=== PATIENT | female | born 2000 | race Hispanic/Latino ===

== ENCOUNTER 2020-08-27 07:30 | Inpatient (IN) | payer OTHER ==
[2020-09-13] MEDS ORDERED: Promethazine HCl 25 MG/ML VIAL IM PRN ×2 (05:56→09:16)
[2020-09-13] MEDS ORDERED: Lactated Ringer's 1,000 ML IV SCH (05:56)
[2020-09-13] MEDS ORDERED: Ondansetron PF 4 MG/2 ML Vial IVP PRN ×3 (05:56→09:16)
[2020-09-13] MEDS ORDERED: Famotidine/PF 20 mg/2ml Vial SLOW IVP PRN (05:56)
[2020-09-13] MEDS ORDERED: Bicitra 30 ML UDCUP PO PRN (05:56)
[2020-09-13] MEDS ORDERED: hydrALAZINE 20 MG/ML VIAL SLOW IVP PRN ×2 (05:56→08:40)
[2020-09-13] MEDS ORDERED: Phenylephrine 40 MG/NS 250 ML 250 ML ONE (06:31)
[2020-09-13] MEDS ORDERED: Morphine PF 10 MG/10 ML VIAL ONE (06:31)
[2020-09-13 06:36] LABS: Hemoglobin 10.5 g/dL (12.0-16.0); Mean Corpuscular HGB CONC 32.8 g/dL (32.0-36.0); Mean Platelet Volume 9.2 fL (7.4-10.4); Platelet Count 253 thou/uL (130-400); RBC Distribution Width 18.3 % (11.5-14.5); Red Blood Cell (RBC) Count 4.23 mill/uL (4.00-5.20); White Blood Cell (WBC) Count 13.6 thou/uL (4.8-10.8)
[2020-09-13 06:37] VITALS: BMI 42.0
[2020-09-13] MEDS ORDERED: Oxytocin 10 UNITS/ML VIAL ONE (06:37)
[2020-09-13] MEDS ORDERED: Ondansetron PF 4 MG/2 ML Vial ONE (06:37)
[2020-09-13] MEDS ORDERED: Dexamethasone 4 mg/ml Vial ONE (06:37)
[2020-09-13] MEDS ORDERED: Clindamycin/D5W 900 mg/50 ml Premix Bag ONE (06:58)
[2020-09-13 07:15] LABS: HBSAg Index 0.21 S/CO (0-0.99); Hep B Surf Ag Non-Reactive S/CO (NonReactive); Syphilis Antibody Nonreactive (Nonreactive); Syphilis Antibody Index 0.02 S/CO (<1.00 Non-Reactive)
[2020-09-13] MEDS ORDERED: PHENYLEPHRINE-NS 100 MCG/ML 10 ML SYRINGE ONE (07:39)
[2020-09-13] MEDS ORDERED: PROPOFOL 20 ML ONE (08:07)
[2020-09-13] MEDS ORDERED: Bisacodyl 10 MG SUPP PR PRN (08:40)
[2020-09-13] MEDS ORDERED: Zolpidem Tartrate 5 MG TAB PO PRN (08:40)
[2020-09-13] MEDS ORDERED: diphenhydrAMINE 25 MG CAP PO PRN (08:40)
[2020-09-13] MEDS ORDERED: Misoprostol 200 MCG TAB PR PRN (08:40)
[2020-09-13] MEDS ORDERED: Meperidine HCl/PF 25 MG/ML VIAL IM PRN (08:40)
[2020-09-13] MEDS ORDERED: Acetaminophen 325 MG TAB PO PRN (08:40)
[2020-09-13] MEDS ORDERED: Promethazine HCl 25 MG SUPP PR PRN (09:16)
[2020-09-13] MEDS ORDERED: diphenhydrAMINE 50 MG/ML VIAL IVP PRN (09:16)
[2020-09-13] MEDS ORDERED: Naloxone HCl 0.4 mg/ml Vial IV PRN (09:16)
[2020-09-13] MEDS ORDERED: Naloxone HCl 0.4 mg/ml Vial IVP PRN ×2 (09:16)
[2020-09-13] MEDS ORDERED: Communication Order-Pharmacy FS SCH (09:30)
[2020-09-13] MEDS: Ferrous Sulfate 325 MG TAB PO SCH ×2 (11:07→19:12)
[2020-09-13] MEDS: Docusate Calcium (SURFAK) 240 MG CAP PO SCH ×2 (11:07→20:47)
[2020-09-13] MEDS: Lactated Ringer's 1,000 ML IV SCH ×2 (11:08→17:01)
[2020-09-13] MEDS: Ketorolac Tromethamine 30 MG/ML VIAL IVP PRN ×2 (14:29→20:47)
[2020-09-13] MEDS: Ibuprofen 800 MG TAB PO SCH ×2 (14:31→20:56)
[2020-09-14] MEDS: HYDROcodone/Acetaminophen 5/325 mg Tablet PO PRN ×6 (00:15→21:32)
[2020-09-14] MEDS: Lactated Ringer's 1,000 ML IV SCH ×4 (00:51→23:05)
[2020-09-14] MEDS: Ibuprofen 800 MG TAB PO SCH ×3 (04:50→21:33)
[2020-09-14 07:21] LABS: Hemoglobin 8.8 g/dL (12.0-16.0); Mean Corpuscular HGB CONC 32.7 g/dL (32.0-36.0); Mean Corpuscular Hemoglobin 25.4 pg (25.0-35.0); Mean Corpuscular Volume 77.7 fL (78.0-98.0); Mean Platelet Volume 8.5 fL (7.4-10.4); Platelet Count 203 thou/uL (130-400); RBC Distribution Width 18.4 % (11.5-14.5); Red Blood Cell (RBC) Count 3.44 mill/uL (4.00-5.20); White Blood Cell (WBC) Count 14.4 thou/uL (4.8-10.8)
[2020-09-14] MEDS ORDERED: Adacel (T-DAP) 0.5 ML SYRINGE IM ONE (08:40)
[2020-09-14] MEDS: Simethicone Chewable 80 MG TAB PO PRN (08:58)
[2020-09-14] MEDS: Docusate Calcium (SURFAK) 240 MG CAP PO SCH ×2 (08:58→21:33)
[2020-09-14] MEDS: Ferrous Sulfate 325 MG TAB PO SCH ×2 (08:58→21:33)
--- NOTE | 2020-09-14 09:04 | OP ---
DATE OF PROCEDURE: 09/13/2020 RESIDENT SURGEON: Jena Johnston, PGY-3. ATTENDING SURGEON: Brandee Guillen MD. PROCEDURE PERFORMED: Repeat low-transverse . PREOPERATIVE DIAGNOSES: 1. Term intrauterine . 2. Prior section x1. 3. History of hemorrhage and chorioamnionitis. 4. Group B strep negative. POSTOPERATIVE DIAGNOSES: 1. Term intrauterine , delivered. 2. Prior x1. 3. History of hemorrhage and chorioamnionitis. ANESTHESIA: Spinal. INDICATIONS: The patient is a 19-year-old G2, P1-0-0-1 female at 39.4 weeks' gestation who presents for repeat scheduled . PROCEDURE IN DETAIL: After risks, benefits, and alternatives were explained to the patient, she gave informed consent. Preoperative antibiotics included clindamycin 900 mg due to penicillin allergy. The patient was taken to the operating room where spinal anesthesia was initiated. She was placed in the supine position with a left tilt, and prepped and draped in the usual sterile fashion. A Pfannenstiel was made with a scalpel and carried down to the level of the fascia. Old scar was also excised. Fascia was sharply nicked. The fascial cut was extended bilaterally with Marinelli scissors. The inferior and superior edges of the cut fascial edges were elevated with Jayde clamps and underlying rectus muscles were sharply and bluntly dissected free. The recti were divided digitally and retracted manually. The peritoneum was entered bluntly and retracted manually. Bladder blade was placed. Bladder flap was created with Metzenbaum scissors. A low-transverse score was made with scalpel and the uterus was entered in the midline with a scalpel. Clear fluid was seen. The hysterotomy was extended manually. The was noted to be vertex and easily delivered with fundal pressure at 0758. Nuchal cord x1 easily reduced. Mouth and nares were bulb suctioned. Cord clamped and cut and grossly normal male was handed to waiting nurse. Cord blood was obtained. Placenta was manually extracted and found to be intact with 3-vessel cord and discarded. The uterus was externalized and the endometrium was curetted with a dry lap. The bladder blade was replaced and the uterus was closed with a running locking 1-0 Chromic suture. Seprafilm was applied to the uterus. The abdomen was suction free of clots. Uterus was internalized, and the hysterotomy was again noted to be hemostatic. Peritoneum was closed using 2-0 Vicryl. The rectus was closed using 2-0 Vicryl and #1 chromic. The fascia was closed with a running nonlocking 0 Vicryl. The The subcutaneous tissue was irrigated and bleeders were cauterized and hemostatic. Subcutaneous tissue was closed using 2-0 plain gut. The skin was approximated with 4-0 Monocryl and Dermabond, and the pressure dressing was placed. All counts were correct. The patient tolerated the procedure well and was taken to the recovery room in stable condition. QBL: 830 mL. COMPLICATIONS: None. SPECIMENS: Cord blood sent to lab for blood type. FINDINGS: 1. Grossly normal male with Apgars of 8 and 9. 2. Grossly normal placenta with three-vessel cord discarded. DRAINS: Ortega to gravity, draining clear fluid. Job ID: [id number] MTDD
[2020-09-15] MEDS: HYDROcodone/Acetaminophen 5/325 mg Tablet PO PRN ×3 (01:57→12:16)
[2020-09-15] MEDS: Ibuprofen 800 MG TAB PO SCH (05:17)
[2020-09-15] MEDS: Simethicone Chewable 80 MG TAB PO PRN (07:50)
[2020-09-15] MEDS: Ferrous Sulfate 325 MG TAB PO SCH (07:50)
[2020-09-15] MEDS: Docusate Calcium (SURFAK) 240 MG CAP PO SCH (07:51)
[2020-09-15 10:15] VITALS: BP 110/60; TEMP 97.7
[2020-09-15] MEDS: Lactated Ringer's 1,000 ML IV SCH (12:48)
== END 2020-09-15 13:45 | disposition home or self-care (01) | DRG 788 ==
LOC: EDBD → L&D 09-13 05:38 → EDBD 09-13 05:38 → L&D 09-13 09:55 → 3SW 09-13 10:56
PROVIDERS: ADMIT Obstetrics & Gynecology; ATTEND Obstetrics & Gynecology
PROC: 10D00Z1 Extraction of Products of Conception, Low, Open Approach (ICD-10-PCS; principal; 2020-09-13)
DX: O34.211 Maternal care for low transverse scar from previous cesarean delivery (principal); O69.81X0 Labor and delivery complicated by cord around neck, without compression, not applicable or unspecified; Z20.822 Contact with and (suspected) exposure to COVID-19; Z88.0 Allergy status to penicillin; Z3A.39 39 weeks gestation of pregnancy; Z37.0 Single live birth
CPT/HCPCS: 36415; 51702; 85027; 86780; 86850; 86900; 86901; 87340; J1100; J1200; J1885; J2270; J2405; J2704; J3490

== ENCOUNTER 2020-09-10 10:54 | Outpatient (CLI) | payer OTHER ==
[2020-09-11 10:57] LABS: SARS-CoV-2 PCR by NAA Not Detected (NotDetected)
== END 2020-09-10 10:55 | disposition home or self-care (01) ==
LOC: EDBD → LABBT 10:54
PROVIDERS: ATTEND Obstetrics & Gynecology
DX: Z20.822 Contact with and (suspected) exposure to COVID-19 (principal)
CPT/HCPCS: 87635; U0003; U0005